=== PATIENT | male | born 1945 | race Caucasian/White ===

== ENCOUNTER → 2016-04-26 | Outpatient (CLI) | payer MEDICARE, OTHER ==
--- NOTE | 2016-04-26 09:19 | REP ---
CT of the chest without IV contrast for follow up of lung nodules: Comparison is 10/31/2015. There are lung nodules as follows: Image 55, superior segment right lower lobe, pleural-based, 9 mm, 8 mm previously. Image 59, right middle lobe, 5 mm, 4 mm previously upon re measuring . Image 63, right lower lobe, pleural-based, 10 mm, 8 mm previously upon re measuring. Image 36, left upper lobe superior segment, pleural-based, 6 mm, 5 mm previously. There is no mediastinal or axillary lymph node enlargement, as previously. The current study is insensitive for hilar lymph node enlargement in the absence of IV contrast. There is no hilar lymph node enlargement. Previously. There are no infiltrates or effusions. The unenhanced thoracic aorta is unremarkable. Cardiac size is normal. There is no pericardial effusion. Upper abdomen: There is a small cyst in the medial segment of the hepatic left lobe there is a small cyst medially in the dome of the liver. These are unchanged. On the prior study with IV contrast. A small enhancing lesion was noted in the dome of the liver posterior laterally, possibly an hemangioma. This is isointense to hepatic parenchyma on the current study without IV contrast. It is not identified. The adrenals are unremarkable. The lateral leaf of the left adrenal is imaged in obliquity in the artifactual appearance of the left adrenal nodule. However, no nodules identified on the reformatted sagittal coronal images. Spleen is normal size. Pancreas is unremarkable. The visualized renal upper poles are unremarkable. The gallbladder is unremarkable. Impression: Multiple lung nodules as described. No adenopathy, infiltrate or effusion. Followup recommendation for the largest nodule according to the Fleischner [employer] is follow-up CT at 3, 9 and 24 months. Consider PET scan. The current study is 6 months from the prior examination. Signed by Silver Monte MD 04/26/2016 09:10 A
== END ==
LOC: M RAD 08:14
PROVIDERS: ATTEND Internal Medicine Pulmonary Disease
DX: R91.8 Other nonspecific abnormal finding of lung field (principal)

== ENCOUNTER → 2016-05-28 | Outpatient (CLI) | payer MEDICARE, OTHER ==
--- NOTE | 2016-05-30 06:54 | SLEEPCENT ---
DATE OF PROCEDURE: 05/28/2016 ORDERED BY: Dr. Juventino Shepherd. Nocturnal polysomnography was performed for evaluation of sleep apnea syndrome symptoms in this patient with abnormal nocturnal oximetry, asthma and hypertension. 5 hours and 55 minutes of data were reviewed. There were 291 minutes of sleep identified. Sleep latency was prolonged at 23 minutes Rapid eye movement (REM) latency was normal at 73 minutes. Sleep architecture showed severe fragmentation. Overall sleep efficiency was fair at 70.9% but REM time was severely reduced. The patient's EKG showed a sinus rhythm with an average heart rate of 56 beats per minute. Occasional unifocal ventricular ectopic beats were seen. EEG showed reasonably normal wave forms for awake and sleep with no focal events identified. There were 221 respiratory events identified of 10 seconds in duration or greater for an apnea-hypopnea index of 45.6. The events were primarily obstructive not exclusive to sleep stage nor body position. Snoring was noted as well and arousals from respiratory events occurred 32.6 times per hour. There were oxygen desaturations seen into the 70s. Minimal limb activity was seen and remaining measures of sleep physiology were normal. IMPRESSION: Severe obstructive sleep apnea syndrome, mild (G47.33). Apnea-hypopnea index 45.6. RECOMMENDATION: The patient should be encouraged to return to the sleep disorder center for pressure therapy. In the interim, alcohol and sedative avoidance should be practiced and caution exercised during the operation of motor vehicles.
== END ==
LOC: M SLEEP 19:41
PROVIDERS: ATTEND Internal Medicine Pulmonary Disease
DX: G47.33 Obstructive sleep apnea (adult) (pediatric) (principal)

== ENCOUNTER → 2016-06-26 | Outpatient (CLI) | payer MEDICARE, OTHER ==
--- NOTE | 2016-06-29 10:04 | SLEEPCENT ---
DATE OF PROCEDURE: 06/26/2016 ORDERED BY: Dr. Juventino Shepherd. Nocturnal polysomnography was performed for the titration of pressure therapy in this patient with obstructive sleep apnea syndrome, apnea-hypopnea index of 45. For testing, the patient was fit with a Bazari ESON nasal mask of medium size, 5 cm of water pressure was applied to the circuit and the lights were extinguished. 8 hours and 5 minutes of data were reviewed. There were 453 minutes of sleep identified. Sleep latency was normal at 8.5 minutes. REM latency was normal at 75 minutes. Sleep architecture was fairly good. There was some fragmentation. Overall sleep efficiency was 94.8%. EKG showed a sinus rhythm with an average heart rate of 55 beats per minute. EEG showed normal wave forms for wake and sleep. Respiratory events were fully palliated with CPAP at a pressure of 9. CPAP tolerance was good. There was some limb activity particularly early in the mid portion of the study. Limb movement arousal index on this occasion was 8.9 up from the diagnostic study. IMPRESSION: Obstructive sleep apnea syndrome (G47.33). RECOMMENDATION: Nightly use of pressure therapy 9 cm of water.
== END ==
LOC: M SLEEP 19:45
PROVIDERS: ATTEND Nurse Practitioner Adult Health
DX: G47.33 Obstructive sleep apnea (adult) (pediatric) (principal)

== ENCOUNTER → 2016-10-29 | Outpatient (CLI) | payer MEDICARE, OTHER ==
--- NOTE | 2016-10-29 12:38 | REP ---
CT of the chest without IV contrast: Comparisons are 04/26/2016 and 10/31/2059. There is a pleural-based 8 mm lung nodule on image 52. This measured 9 mm on 04/26/2069 and 8 mm on 10/31/2015. There is a 4 mm right middle lobe lung nodule on image 59. This measured 5 mm of 04/26/2016 and 4 mm on 10/31/2015. There is a 8 mm lung nodule, pleural-based, on image 61. This measured 10 mm on 04/26/2016 and 8 mm on 10/31/2015. There is a 4 mm pleural-based poorly defined nodule on image 35. The superior segment of the left lower lobe. This measured 5 mm on 04/26/2016 and 5 mm on 10/31/2015. There are no other lung nodules or masses. There are no acute infiltrates or effusions. There is no mediastinal adenopathy. In the absence of IV contrast study is insensitive for hilar adenopathy. There is no axillary adenopathy. The unenhanced thoracic aorta is unremarkable. Cardiac size is normal. There are occasional atheromatous calcifications in the coronary arteries. Upper abdomen: There is no adrenal mass. The visualized portions of the unenhanced liver, gallbladder, pancreas, spleen are unremarkable except for few small hepatic cysts, unchanged. Impression: Multiple lung nodules as described. No acute infiltrates or effusions. No masses or adenopathy. A few small hepatic cysts are incidentally noted, unchanged. Signed by Silver Monte MD 10/29/2016 12:29 P
== END ==
LOC: M RAD 11:15
PROVIDERS: ATTEND Internal Medicine Pulmonary Disease
DX: R06.02 Shortness of breath (principal)

== ENCOUNTER → 2018-05-06 | Outpatient (CLI) | payer MEDICARE, OTHER ==
--- NOTE | 2018-05-06 12:34 | REP ---
Chest x-ray: Two views. History: Hemoptysis . Comparison study: August 05, 2015 . Findings: The lungs are well inflated and free of infiltrate. The pleural angles are sharp. The heart size is normal. Pulmonary vasculature is not increased. No significant bony abnormality is seen. There is a small 5 mm nodular opacity at the right base laterally which is unchanged from the 2015 prior study. No new pulmonary nodule is seen. Impression: No active disease. Electronically Signed by Gonzalo Laguerre MD 05/06/2018 12:25 P
== END ==
LOC: M RAD 08:57
PROVIDERS: ATTEND Internal Medicine Pulmonary Disease
DX: R04.2 Hemoptysis (principal)

== ENCOUNTER → 2019-06-23 | Outpatient (REF) | payer MEDICARE, OTHER | LOC: M LAB REF 12:26 | PROVIDERS: ATTEND Family Medicine | DX: Z01.89 Encounter for other specified special examinations (principal) ==

== ENCOUNTER → 2021-12-25 | Outpatient (CLI) | payer MEDICARE, OTHER | LOC: M RAD 14:45 | PROVIDERS: ATTEND Family Medicine | DX: M25.512 Pain in left shoulder (principal) ==

== ENCOUNTER → 2023-04-30 | Outpatient (CLI) | payer MEDICARE, OTHER | LOC: M WUC 13:25 | PROVIDERS: ATTEND Family Medicine | DX: R05.9 Cough, unspecified (principal) ==